=== PATIENT | female | born 1940 | race Caucasian/White ===

== ENCOUNTER 2020-11-21 02:36 | Observation (INO) | payer MEDICARE ==
[2020-11-16 10:40] LABS: BASOPHILS # (AUTO) 0.1 (0.0-0.1); BASOPHILS % 0.5 % (0.0-1.0); EOSINOPHILS # (AUTO) 0.2 (0.0-0.4); EOSINOPHILS % 1.2 % (0.0-6.0); HEMATOCRIT 47.5 % (34.2-44.1); HEMOGLOBIN 15.5 g/dL (12.0-16.0); LYMPHOCYTES # (AUTO) 2.2 (1.0-3.2); LYMPHOCYTES % 16.2 % (18.0-39.1); MEAN CORPUSCULAR HEMOGLOBIN 31.3 pg (28-32); MEAN CORPUSCULAR HGB CONC 32.6 g/dL (31-35); MEAN CORPUSCULAR VOLUME 95.8 fL (81-99); MONOCYTES % 7.3 % (4.4-11.3); NEUTROPHILS % 74.3 % (38.7-80.0); PLATELET COUNT 777 x10e3/uL (140-360); RED BLOOD COUNT 4.96 x10e6/uL (3.6-5.1); RED CELL DISTRIBUTION WIDTH 14.1 % (11.7-14.4)
[2020-11-16 10:59] LABS: ALBUMIN 4.1 g/dL (3.5-5.0); ALBUMIN/GLOBULIN RATIO 1.2 (0.8-2.0); ANION GAP 13.1 mmol/L (8-16); CALCIUM 9.7 mg/dL (8.4-10.2); CREATININE, SERUM 1.36 mg/dL (0.57-1.11); POTASSIUM 4.1 mmol/L (3.5-5.1)
[~2020-11-21] VITALS: Ht 193 cm; Wt 85.3 kg
[2020-11-21] VITALS (13 sets, daily range): BP systolic 143–170; BP diastolic 80–104
[~2020-11-21 02:36] MED LIST: ASPIRIN LOW-STR81 MG PO; ATORVASTATIN CA20 MG PO; CALCIUM PO; CENTRUM SILVER1 EAC5 PO; HYDROXYUREA500 MG PO; PACERONE200 MG PO; PROTONIC; Z.0.ATENOLOL25 MG PO; Z.0.ENALAPRIL MALEA2 PO; Z.0.LOVASTATIN40 MG PO; Z.0.PROTONIX20 MG PO; Z.2.METFORMIN HCL500 PO; [UNRECOGNIZED DRUG - OTHER] PO
[2020-11-21] MEDS ORDERED: VERAPAMIL HCL 2.5 MG/ML 2 ML VIAL ONE (14:45)
[2020-11-21] MEDS ORDERED: MIDAZOLAM HCL 2 MG/2 ML VIAL ONE (14:46)
[2020-11-21] MEDS ORDERED: FENTANYL CITRATE/PF 100MCG/2 ML INJ ONE (14:46)
[2020-11-21] MEDS ORDERED: LIDOCAINE HCL 2% LOCAL 20 ML VIAL ONE (14:46)
[2020-11-21] MEDS ORDERED: SODIUM CHLORIDE 0.9% 1000ML 1,000 ML ONE (14:48)
[2020-11-21] MEDS ORDERED: HEPARIN SOD/SOD CHLORIDE 2,000 ML ONE (14:48)
[2020-11-21] MEDS ORDERED: IOPAMIDOL 370 MG/ML 200 ML INFUS..BTL INJ ONE (14:48)
[2020-11-21] MEDS ORDERED: ALPRAZOLAM 0.5 MG TAB ONE (15:09)
[2020-11-21] MEDS ORDERED: DIPHENHYDRAMINE HCL 25 MG CAP ONE (15:10)
[2020-11-21] MEDS ORDERED: METOPROLOL TARTRATE INJ 1 MG/ML VIAL ONE ×2 (15:49→15:50)
[2020-11-21] MEDS ORDERED: BIVALRIUDIN 250 MG/VIAL VIAL IV ONE (15:54)
[2020-11-21] MEDS ORDERED: SODIUM CHLORIDE 0.9% 50ML 50 ML ONE (15:55)
[2020-11-21] MEDS ORDERED: DIGOXIN INJ 0.25 MG/ML 2 ML AMP ONE (15:59)
[2020-11-21] MEDS ORDERED: PRASUGREL 10 MG TAB ONE (16:08)
[2020-11-21] MEDS ORDERED: ASPIRIN 325 MG TAB ONE (16:08)
[2020-11-21] MEDS ORDERED: HYDRALAZINE HCL 20 MG/ML VIAL IV PRN (16:15)
[2020-11-21] MEDS ORDERED: MORPHINE SULFATE INJ 4 MG/ML INJ 1ML IV PRN (16:15)
[2020-11-21] MEDS ORDERED: SODIUM CHLORIDE 0.9% 1000ML 1,000 ML IV SCH (16:15)
[2020-11-21] MEDS ORDERED: HYDROCODONE/APAP 5MG-325MG TAB PO PRN (16:15)
[2020-11-21] MEDS ORDERED: ONDANSETRON HCL INJ 2MG/ML 2ML 2 MG/ML VIAL IV PRN (16:15)
[2020-11-21] MEDS ORDERED: METOPROLOL SUCCINATE 50 MG TAB XL PO NR (16:15)
[2020-11-21] MEDS ORDERED: ACETAMINOPHEN 325 MG TAB PO PRN (16:15)
[2020-11-21] MEDS: AMIODARONE HCL 200 MG TAB PO SCH (17:00)
[2020-11-21] MEDS ORDERED: ZOLPIDEM TARTRATE 5 MG TAB PO PRN (21:00)
[2020-11-22] VITALS: BP 141/77
[2020-11-22 04:00] VITALS: BP 135/86
[2020-11-22 05:08] LABS: BASOPHILS # (AUTO) 0.1 (0.0-0.1); BASOPHILS % 0.7 % (0.0-1.0); EOSINOPHILS # (AUTO) 0.2 (0.0-0.4); EOSINOPHILS % 1.5 % (0.0-6.0); HEMATOCRIT 43.9 % (34.2-44.1); HEMOGLOBIN 14.7 g/dL (12.0-16.0); LYMPHOCYTES # (AUTO) 2.6 (1.0-3.2); LYMPHOCYTES % 19.6 % (18.0-39.1); MEAN CORPUSCULAR HEMOGLOBIN 31.6 pg (28-32); MEAN CORPUSCULAR HGB CONC 33.5 g/dL (31-35); MEAN CORPUSCULAR VOLUME 94.4 fL (81-99); MONOCYTES # (AUTO) 1.1 (0.2-0.8); MONOCYTES % 8.3 % (4.4-11.3); NEUTROPHILS # (AUTO) 9.2 (2.1-6.9); NEUTROPHILS % 68.8 % (38.7-80.0); PLATELET COUNT 711 x10e3/uL (140-360); RED BLOOD COUNT 4.65 x10e6/uL (3.6-5.1); RED CELL DISTRIBUTION WIDTH 13.9 % (11.7-14.4)
[2020-11-22 05:28] LABS: ALBUMIN 3.8 g/dL (3.5-5.0); ALBUMIN/GLOBULIN RATIO 1.3 (0.8-2.0); ANION GAP 14.6 mmol/L (8-16); CALCIUM 9.1 mg/dL (8.4-10.2); CREATININE, SERUM 1.27 mg/dL (0.57-1.11); POTASSIUM 3.6 mmol/L (3.5-5.1)
[2020-11-22 08:14] VITALS: BP 133/93
[2020-11-22 08:50] VITALS: BP 133/93
[2020-11-22] MEDS ORDERED: CLOPIDOGREL BISULFATE 75 MG TAB PO SCH (09:00)
[2020-11-22] MEDS ORDERED: DILTIAZEM HCL ER 120 MG CAP PO SCH (09:00)
[2020-11-22] MEDS ORDERED: ASPIRIN 81 MG CHEW TAB PO SCH (09:00)
[2020-11-22] MEDS ORDERED: HYDROXYUREA 500 MG CAPSULE PO SCH (09:00)
[2020-11-22] MEDS ORDERED: METOPROLOL SUCCINATE 50 MG TAB XL PO SCH (09:00)
[2020-11-22] MEDS: AMIODARONE HCL 200 MG TAB PO SCH (09:05)
[2020-11-22 11:50] VITALS: BP 141/89
[2020-11-22] MEDS ORDERED: CALCIUM CARBONATE 500 MG CHEWABLE TABS PO SCH (14:00)
[2020-11-22] MEDS ORDERED: MULTIVITAMINS/MINERALS TAB PO SCH (14:00)
[2020-11-22] MEDS ORDERED: RIVAROXABAN 20 MG TABLET PO SCH (14:00)
[2020-11-22] MEDS ORDERED: METOPROLOL SUCC50 MG PO (14:09)
[2020-11-22] MEDS ORDERED: PLAVIX75 MG PO (14:09)
[2020-11-22] MEDS ORDERED: XARELTO20 MG PO (14:09)
[2020-11-22] MEDS ORDERED: DILTIAZEM 24HR180 MG PO (14:10)
[2020-11-22] MEDS ORDERED: ATORVASTATIN 20 MG TAB PO SCH (21:00)
== END 2020-11-22 15:10 | disposition home or self-care (01) ==
LOC: CATH LAB 02:36 → CATH LAB V 16:07 → MED/SURG2 19:14
PROVIDERS: ADMIT Internal Medicine Interventional Cardiology; ATTEND Internal Medicine Interventional Cardiology
DX: I25.118 Atherosclerotic heart disease of native coronary artery with other forms of angina pectoris (principal); I48.0 Paroxysmal atrial fibrillation; Z88.2 Allergy status to sulfonamides; Z88.8 Allergy status to other drugs, medicaments and biological substances; I10 Essential (primary) hypertension; Z20.822 Contact with and (suspected) exposure to COVID-19
CPT/HCPCS: 93454; C9600; 36415; 76937; 80053; 83880; 85025; 92928; 99152; 99153; C1874; C1887; G0378; J0583; J1160; J2001; J2250; J3010; J7030; Q9967; U0002